=== PATIENT | female | born 1995 | race Caucasian/White ===

== ENCOUNTER 2019-08-02 12:07 | Emergency (ER) | payer OTHER ==
[~2019-08-02] VITALS: Ht 162.6 cm; Wt 54.5 kg
[2019-08-02 12:15] VITALS: BP 122/74; TEMP 98.7
[2019-08-02] MEDS ORDERED: MIRENA52 MG IY (12:25)
[2019-08-02 14:07] VITALS: PULSE 90
== END 2019-08-02 14:10 | disposition home or self-care (01) ==
LOC: COL.ER 12:07
DX: S02.2XXA Fracture of nasal bones, initial encounter for closed fracture (principal); W50.0XXA Accidental hit or strike by another person, initial encounter; Y92.830 Public park as the place of occurrence of the external cause
CPT/HCPCS: J1885